=== PATIENT | female | born 1940 | race Hispanic/Latino ===

== ENCOUNTER 2018-04-11 11:37 | Day surgery (SDC) | payer MEDICARE, OTHER ==
[~2018-04-11 11:37] MED LIST: AK-Dilate ONE; IOPIDINE ONE; MYDRIACYL ONE
[2018-04-11] MEDS ORDERED: IOPIDINE OS ONE (12:00)
[2018-04-11] MEDS ORDERED: AK-Dilate OS ONE (12:01)
[2018-04-11] MEDS ORDERED: MYDRIACYL OS ONE (12:01)
[2018-04-11 15:07] VITALS: BP 122/76
== END 2018-04-11 12:45 | disposition home or self-care (01) ==
LOC: OR 11:37
PROVIDERS: ATTEND Ophthalmology
DX: E11.36 Type 2 diabetes mellitus with diabetic cataract (principal); H26.492 Other secondary cataract, left eye; I10 Essential (primary) hypertension; K21.9 Gastro-esophageal reflux disease without esophagitis; M19.90 Unspecified osteoarthritis, unspecified site; E78.00 Pure hypercholesterolemia, unspecified; F41.9 Anxiety disorder, unspecified; Z90.13 Acquired absence of bilateral breasts and nipples; Z90.710 Acquired absence of both cervix and uterus; Z88.6 Allergy status to analgesic agent; Z88.8 Allergy status to other drugs, medicaments and biological substances; Z98.890 Other specified postprocedural states

== ENCOUNTER 2019-09-14 11:07 | Day surgery (SDC) | payer MEDICARE, OTHER ==
[~2019-09-14 11:07] MED LIST changes: -AK-Dilate ONE; +APRACLONIDINE 1% OPHTH SOLN DROPERETTE OD ONE; +APRACLONIDINE 1% OPHTH SOLN DROPERETTE ONE; -IOPIDINE ONE; -MYDRIACYL ONE; +PHENYLEPHRINE 10% OPHTH SOLN 5 ML OD ONE; +PHENYLEPHRINE 10% OPHTH SOLN 5 ML ONE; +TROPICAMIDE 1% OPHTH SOLN 3 ML OD ONE; +TROPICAMIDE 1% OPHTH SOLN 3 ML ONE
[2019-09-14] MEDS ORDERED: TROPICAMIDE 1% OPHTH SOLN 3 ML OD ONE (11:29)
[2019-09-14] MEDS ORDERED: APRACLONIDINE 1% OPHTH SOLN DROPERETTE OD ONE ×2 (11:29→12:22)
[2019-09-14] MEDS ORDERED: PHENYLEPHRINE 10% OPHTH SOLN 5 ML OD ONE (11:29)
[2019-09-14 14:45] VITALS: BP 133/72
== END 2019-09-14 12:23 | disposition home or self-care (01) ==
LOC: OR 11:07
PROVIDERS: ATTEND Specialist
DX: E11.36 Type 2 diabetes mellitus with diabetic cataract (principal); H26.491 Other secondary cataract, right eye; E78.00 Pure hypercholesterolemia, unspecified; I10 Essential (primary) hypertension; K21.9 Gastro-esophageal reflux disease without esophagitis; M19.90 Unspecified osteoarthritis, unspecified site; F41.9 Anxiety disorder, unspecified; Z85.3 Personal history of malignant neoplasm of breast; Z90.12 Acquired absence of left breast and nipple; Z79.899 Other long term (current) drug therapy; Z79.82 Long term (current) use of aspirin; Z98.41 Cataract extraction status, right eye; Z98.42 Cataract extraction status, left eye; Z87.440 Personal history of urinary (tract) infections; Z98.890 Other specified postprocedural states
CPT/HCPCS: 82962